=== PATIENT | male | born 1950 ===

== ENCOUNTER 2019-01-19 10:14 | Outpatient (CLI) | payer OTHER | END 2019-01-19 10:49 | disposition home or self-care (01) | LOC: MAMO-SONO 10:14 | DX: M66.0 Rupture of popliteal cyst (principal) ==

== ENCOUNTER 2019-02-23 13:24 | Outpatient (CLI) | payer OTHER | END 2019-02-23 13:30 | disposition home or self-care (01) | LOC: RAD 13:24 | DX: M25.561 Pain in right knee (principal); M25.562 Pain in left knee ==

== ENCOUNTER 2019-03-02 07:16 | Outpatient (CLI) | payer OTHER | END 2019-03-02 07:27 | disposition home or self-care (01) | LOC: MRI 07:16 | DX: M25.562 Pain in left knee (principal) | CPT/HCPCS: 73718 ==

== ENCOUNTER 2019-03-08 08:01 | Outpatient (CLI) | payer OTHER | END 2019-03-08 08:10 | disposition home or self-care (01) | LOC: RAD 08:01 | DX: R07.89 Other chest pain (principal) ==

== ENCOUNTER 2021-08-28 08:00 | Outpatient (CLI) | payer OTHER | END 2021-08-28 08:30 | disposition home or self-care (01) | LOC: PPH VACUNA 08:00 | PROVIDERS: ATTEND Emergency Medicine Pediatric Emergency Medicine | DX: Z23 Encounter for immunization (principal) ==

== ENCOUNTER 2023-11-10 08:18 | Outpatient (CLI) | payer OTHER | END 2023-11-10 08:19 | disposition home or self-care (01) | LOC: NUCLEAR 08:18 | PROVIDERS: ATTEND Internal Medicine Gastroenterology | DX: C18.3 Malignant neoplasm of hepatic flexure (principal) | CPT/HCPCS: 78815; A9552 ==

== ENCOUNTER 2023-12-21 10:42 | Outpatient (CLI) | payer OTHER ==
[2023-12-21 11:25] LABS: HEMOGLOBIN 14.8 g/dL (13-16.00); MEAN CELL VOLUME 91.7 fL (80.0-100.00); MEAN CORPUSCULAR HEMOGLOBIN 31.5 pg (27.00-32.0); MEAN CORPUSCULAR HGB CONC 34.3 g/dl (32.0-36.0); PLATELET COUNT 153 K/uL (150-450)
[2023-12-21 11:25] LABS: PH,URINE 5.5 (5.0-8.0); URINE APPEARANCE Clear; URINE BILIRRUBIN Negative (NEGATIVE); URINE BLOOD Negative; URINE COLOR Yellow; URINE GLUCOSE Negative (NEGATIVE); URINE KETONE Negative (NEGATIVE); URINE LEUKOCYTE Negative; URINE NITRATE Negative; URINE PROTEIN Negative (NEGATIVE); URINE UROBILINOGEN 0.2 E.U./dl
[2023-12-21 11:28] LABS: URINE BACTERIA 13.8 uL (0.0-1933); URINE RBC 12.3 uL (0.0-20.8); URINE WBC 4.3 uL (0.0-23.2)
[2023-12-21 11:29] LABS: URINE CAST 0.15 uL (0.0-1.40)
[2023-12-21 11:52] LABS: PARTIAL THROMBOPLASTIN TIME 26.6 SECONDS (22.0-34.0); PROTHROMBIN TIME 10.5 SECONDS (9.0-11.5)
[2023-12-21 12:23] LABS: ALBUMIN 3.9 gm/dL (3.4-5.0); BILIRUBIN TOTAL 0.6 mg/dL (0.3-1.2); CALCIUM 9.2 mg/dL (8.5-10.1); CREATININE SERUM 0.81 mg/dL (0.70-1.30); GFR 93.94; POTASSIUM 3.79 mEq/L (3.5-5.1); TOTAL PROTEIN 6.9 gm/dL (6.4-8.2)
== END 2023-12-21 10:43 | disposition home or self-care (01) ==
LOC: RAD 10:42
PROVIDERS: ATTEND Surgery
DX: C18.3 Malignant neoplasm of hepatic flexure (principal); R19.4 Change in bowel habit; R19.5 Other fecal abnormalities; I10 Essential (primary) hypertension

== ENCOUNTER 2024-01-05 07:18 | Outpatient (CLI) | payer OTHER ==
[2024-01-05] MEDS ORDERED: METFORMIN HCL500 M4 PO (15:27)
[2024-01-05] MEDS ORDERED: COZAAR25 MG PO (15:27)
[2024-01-05] MEDS ORDERED: ATORVASTATIN CA10 MG PO (15:27)
== END 2024-01-05 07:20 | disposition home or self-care (01) ==
LOC: RAD 07:18
PROVIDERS: ATTEND Surgery
DX: C18.3 Malignant neoplasm of hepatic flexure (principal); R19.4 Change in bowel habit; R19.5 Other fecal abnormalities

== ENCOUNTER 2024-01-05 11:15 | Inpatient (IN) | payer OTHER ==
[~2024-01-05] VITALS: Ht 157.5 cm; Wt 66.2 kg
[2024-01-05] MEDS ORDERED: METFORMIN HCL500 M4 PO (15:27)
[2024-01-05] MEDS ORDERED: COZAAR25 MG PO (15:27)
[2024-01-05] MEDS ORDERED: ATORVASTATIN CA10 MG PO (15:27)
[2024-01-07 12:16] LABS: URINE APPEARANCE Clear; URINE BILIRRUBIN Negative (NEGATIVE); URINE BLOOD Negative; URINE COLOR Dark Yellow; URINE GLUCOSE Negative (NEGATIVE); URINE KETONE Negative (NEGATIVE); URINE LEUKOCYTE Negative; URINE NITRATE Negative; URINE PROTEIN Trace (NEGATIVE)
[2024-01-07 12:20] LABS: URINE BACTERIA 15.1 uL (0.0-1933); URINE EPITHELIAL CELLS 8.1 uL (0.0-38.8); URINE RBC 15.8 uL (0.0-20.8); URINE WBC 6.3 uL (0.0-23.2)
[2024-01-07 12:34] LABS: HEMATOCRIT 44.4 % (39.0-48.0); HEMOGLOBIN 15.5 g/dL (13-16.00); MEAN CELL VOLUME 91.3 fL (80.0-100.00); MEAN CORPUSCULAR HEMOGLOBIN 31.8 pg (27.00-32.0); MEAN CORPUSCULAR HGB CONC 34.8 g/dl (32.0-36.0); PLATELET COUNT 172 K/uL (150-450); RED BLOOD COUNT 4.86 M/uL (4.00-6.00)
[2024-01-07 12:37] LABS: URINE CAST 1.22 uL (0.0-1.40)
[2024-01-07 12:38] LABS: INR 1.03; PARTIAL THROMBOPLASTIN TIME 26.7 SECONDS (22.0-34.0); PROTHROMBIN TIME 11.2 SECONDS (9.0-11.5)
[2024-01-07 12:55] LABS: ALBUMIN 4.1 gm/dL (3.4-5.0); BILIRUBIN TOTAL 0.77 mg/dL (0.3-1.2); CREATININE SERUM 0.88 mg/dL (0.70-1.30); GFR 85.37; POTASSIUM 3.71 mEq/L (3.5-5.1); TOTAL PROTEIN 7.1 gm/dL (6.4-8.2)
[2024-01-11] MEDS ORDERED: CEFTRIAXONE SODIUM 2,000 MG VIAL ONE (11:07)
[2024-01-11] MEDS ORDERED: METRONIDAZOLE/SODIUM CHLORIDE 500 MG/100 ML PIGGYBACK IV ONE ×2 (11:08→19:22)
[2024-01-11] MEDS ORDERED: OxyCODONE HCL 5 MG TABLET (ROXICODONE) PO PRN (13:45)
[2024-01-11] MEDS ORDERED: ONDANSETRON HCL 2 MG/ML VIAL IV PRN (13:45)
[2024-01-11] MEDS ORDERED: 0.9 % SODIUM CHLORIDE 1,000 ML IV SCH (13:45)
[2024-01-11] MEDS ORDERED: DEXTROSE 50 % IN WATER 0.5 G/ML DISP.SYRIN IV PRN (13:45)
[2024-01-11] MEDS ORDERED: MORPHINE SULFATE 4 MG/ML CARTRIDGE IV PRN (13:45)
[2024-01-11] MEDS ORDERED: CEFTRIAXONE SODIUM 2,000 MG VIAL IV ONE (14:00)
[2024-01-11] MEDS ORDERED: ACETAMINOPHEN 500 MG GEL..CAP PO SCH (14:00)
[2024-01-11] MEDS ORDERED: METROnidazole 500 MG TABLET PO ONE (14:00)
[2024-01-11] MEDS ORDERED: GABAPENTIN 300 MG CAPSULE PO SCH (17:00)
[2024-01-11] MEDS ORDERED: METRONIDAZOLE/SODIUM CHLORIDE 500 MG/100 ML PIGGYBACK IV SCH (17:00)
[2024-01-11] MEDS ORDERED: POLYETHYLENE GLYCOL 3350 17 GM BLIST.PACK PO SCH (17:00)
[2024-01-11] MEDS ORDERED: MORPHINE SULFATE 2 MG/ML CARTRIDGE IV ONE (17:00)
[2024-01-11] MEDS ORDERED: HYOSCYAMINE SULFATE 0.125 MG TAB.SUBL SL SCH (17:00)
[2024-01-11 17:19] LABS: HEMATOCRIT 46.5 % (39.0-48.0); HEMOGLOBIN 15.8 g/dL (13-16.00); MEAN CELL VOLUME 92.4 fL (80.0-100.00); MEAN CORPUSCULAR HEMOGLOBIN 31.4 pg (27.00-32.0); PLATELET COUNT 167 K/uL (150-450); RED BLOOD COUNT 5.03 M/uL (4.00-6.00)
[2024-01-11] MEDS ORDERED: MORPHINE SULFATE 4 MG/ML VIAL IV ONE ×2 (17:30→18:00)
[2024-01-11 17:44] LABS: ALBUMIN 3.8 gm/dL (3.4-5.0); CALCIUM 9.2 mg/dL (8.5-10.1); CREATININE SERUM 0.86 mg/dL (0.70-1.30); GFR 87.66; PHOSPHOROUS 2.6 mg/dL (2.5-4.9); POTASSIUM 3.9 mEq/L (3.5-5.1)
[2024-01-11] MEDS ORDERED: FAMOTIDINE/PF 20 MG/2 ML VIAL ONE (20:22)
[2024-01-11] MEDS ORDERED: FAMOTIDINE/PF 20 MG/2 ML VIAL IV PUSH SCH (21:00)
[2024-01-11 22:19] VITALS: BP 149/81; O2SAT 94
[2024-01-12] VITALS: BP 151/81; O2SAT 99
[2024-01-12] MEDS ORDERED: INSULIN LISPRO 1,000 UNIT/10 ML UNITS SUBCUTANEO PRN (03:00)
[2024-01-12] MEDS ORDERED: DEXTROSE 50 % IN WATER 0.5 G/ML DISP.SYRIN IV PRN (03:00)
[2024-01-12 07:38] LABS: HEMATOCRIT 43.3 % (39.0-48.0); HEMOGLOBIN 15.1 g/dL (13-16.00); MEAN CELL VOLUME 91.5 fL (80.0-100.00); MEAN CORPUSCULAR HEMOGLOBIN 31.8 pg (27.00-32.0); MEAN CORPUSCULAR HGB CONC 34.8 g/dl (32.0-36.0); PLATELET COUNT 161 K/uL (150-450); RED BLOOD COUNT 4.73 M/uL (4.00-6.00)
[2024-01-12 08:24] LABS: ALBUMIN 3.6 gm/dL (3.4-5.0); CALCIUM 8.8 mg/dL (8.5-10.1); CREATININE SERUM 0.84 mg/dL (0.70-1.30); GFR 90.07; MAGNESIUM 1.8 mg/dL (1.8-2.4); POTASSIUM 3.66 mEq/L (3.5-5.1)
[2024-01-12 08:47] LABS: PHOSPHOROUS 1.6 mg/dL (2.5-4.9)
[2024-01-12 09:48] VITALS: BP 133/81; O2SAT 99
[2024-01-12 16:00] VITALS: BP 126/81; O2SAT 96
[2024-01-12] MEDS ORDERED: ENOXAPARIN SODIUM 40 MG/0.4 ML SYRINGE SUBCUTANEO SCH (17:00)
[2024-01-13] VITALS: BP 141/84; O2SAT 98
[2024-01-13 08:00] VITALS: BP 139/73; O2SAT 97
[2024-01-13] MEDS ORDERED: HYOSCYAMINE0.125 M1 SL (08:13)
[2024-01-13] MEDS ORDERED: TRAM1TAB98 PO (08:13)
[2024-01-13] MEDS ORDERED: PEPCID AC20 MG PO (08:13)
[2024-01-13] MEDS ORDERED: ENOXAPARIN SODIUM 40 MG/0.4 ML SYRINGE SUBCUTANEO SCH (09:00)
== END 2024-01-13 14:19 | disposition home or self-care (01) | DRG 330 ==
LOC: SURH 01-11 08:45 → O/R 01-11 08:45 → SURH 01-11 11:15 → SURG 01-11 18:52 → SURH 01-11 20:51
PROVIDERS: ADMIT Surgery; ATTEND Surgery
PROC: 07BB4ZZ Excision of Mesenteric Lymphatic, Percutaneous Endoscopic Approach (ICD-10-PCS; 2024-01-11)
PROC: 0DTF4ZZ Resection of Right Large Intestine, Percutaneous Endoscopic Approach (ICD-10-PCS; principal; 2024-01-11 12:15)
DX: C18.3 Malignant neoplasm of hepatic flexure (principal); K92.1 Melena; R59.0 Localized enlarged lymph nodes